=== PATIENT | male | born 1950 | race Caucasian/White ===

== ENCOUNTER 2018-01-25 11:48 | Emergency (ER) | payer MEDICARE, OTHER ==
[2018-01-25] MEDS ORDERED: Sodium Chloride 0.9% 10 ML Syringe FLUSH PRN (12:53)
--- NOTE | 2018-01-25 12:58 | EDM.PDOC ---
ED HPI GENERAL MEDICAL PROBLEM - General Chief Complaint: General Stated Complaint: DR MAURICE FELT HE SHOULD COME TO ER Time Seen by Provider: 01/25/18 12:25 Source of Information: Reports: Patient History Limitations: Reports: No Limitations - History of Present Illness INITIAL COMMENTS - FREE TEXT/NARRATIVE: pt arrived because yestwerday he was not able to use his rt hand. Prior to thAT HE HAD TINGLING IN THE HAND. hE FELT LIKE HIS HAND WAS SHAKING. Onset: Other (PT WAS NOT ABLE TO USE HIS RT HAND. THIS OCCURRED YESTERDAY AND TODAY IT APPEARS TO BE WORKING WELL. ) Duration: Hour(s): Location: Reports: Upper Extremity, Right Associated Symptoms: Reports: No Other Symptoms, Other (PT IS CHRONICLY RUNNING LOW o2 SATS. ) - Related Data Allergies Allergy/AdvReac Type Severity Reaction Status Date / Time No Known Allergies Allergy Verified 09/03/13 13:56 Home Meds: Home Meds Aspirin [[place]ander Chewable Aspirin] 09/03/13 [History] Budesonide/Formoterol [Symbicort 160-4.5 Mcg Inhaler] 09/03/13 [History] Carvedilol 09/03/13 [History] Lisinopril 09/03/13 [History] Simvastatin 09/03/13 [History] Spironolactone 09/03/13 [History] metFORMIN [Glucophage] 09/03/13 [History] Past Medical History Cardiovascular History: Reports: Heart Failure, High Cholesterol Respiratory History: Reports: COPD Endocrine/Metabolic History: Reports: Diabetes, Type II - Past Surgical History Other GI Surgeries/Procedures: lab band surgery Social & Family History - Tobacco Use Smoking Status *Q: Heavy Tobacco Smoker Years of Tobacco use: 46 Packs/Tins Daily: 1 - Caffeine Use Caffeine Use: Reports: Coffee, Soda - Recreational Drug Use Recreational Drug Use: Yes Recreational Drug Type: Reports: Marijuana/Hashish ED ROS GENERAL - Review of Systems Review Of Systems: See Below Constitutional: Reports: No Symptoms HEENT: Reports: No Symptoms Respiratory: Reports: Shortness of Breath Cardiovascular: Reports: No Symptoms ED EXAM, GENERAL - Physical Exam Exam: See Below Free Text/Narrative:: pT ARRIVED WITH AHISTORY OF NOT BEING ABLE TO USE HIS RT HAND YESTERDAY FOR A PERIOD OF TIMME. hE HAS NOT HAD ANY PROBLEMS TODAY. hE STATES HE DOES NOT HAVE A HEADACHE. HE DID NOT HAVE OTHER SYMPTOMS. Exam Limited By: No Limitations General Appearance: Alert, Anxious, Other (PUPILS ARE EQUAL AND REACTIVE. ) Ears: Normal TMs Nose: Normal Inspection Throat/Mouth: Normal Inspection Head: Atraumatic Neck: Normal Inspection Respiratory/Chest: No Respiratory Distress, Other (pT DOES DROP HIS O2 SATS IN THE LOW 80S WHEN HE IS NOT ON O2. tHIS HAS BEEN GOING ON FOR AWHILE. hE DOES HAVE O2 THAT HE USES IN THE NITE . ) Cardiovascular: Regular Rate, Rhythm, Tachycardia GI/Abdominal: Soft, Non-Tender (Male) Exam: Deferred Rectal (Males) Exam: Deferred Back Exam: Normal Inspection Extremities: Normal Inspection Neurological: Alert, Oriented, Normal Cognition, Other (NO NEURO SYMPTOMS. ) Course - Vital Signs Last Recorded V/S: Last Vital Signs Temp 37.2 C 01/25/18 12:25 Pulse 99 01/25/18 12:25 Resp 18 01/25/18 12:25 BP 138/74 01/25/18 12:25 Pulse Ox 86 L 01/25/18 12:25 - Orders/Labs/Meds Orders: Active Orders 24 hr Category Date Time Status Cardiac Monitoring [RC] .As Directed Care 01/25/18 12:52 Active EKG Documentation Completion [RC] ASDIRECTED Care 01/25/18 12:51 Active Chest 1V Frontal [CR] Stat Exams 01/25/18 15:22 Taken CULTURE URINE [RM] Stat Lab 01/25/18 15:04 Received UA W/MICROSCOPIC [URIN] Urgent Lab 01/25/18 14:18 Ordered Sodium Chloride 0.9% [Saline Flush] Med 01/25/18 12:53 Active 10 ml FLUSH ASDIRECTED PRN Saline Lock Insert [OM.PC] Routine Oth 01/25/18 12:53 Ordered EKG 12 Lead [EK] Routine Ther 01/25/18 12:51 Ordered Medication Orders Sodium Chloride (Saline Flush) 10 ml FLUSH ASDIRECTED PRN PRN Reason: Keep Vein Open Last Admin: 01/25/18 13:04 Dose: 10 ml Labs: Laboratory Tests 01/25/18 01/25/18 01/25/18 Range/Units 13:06 13:06 14:18 WBC 8.0 (4.5-11.0) K/uL RBC 5.85 (4.30-5.90) M/uL Hgb 17.0 H D (12.0-15.0) g/dL Hct 55.7 H (40.0-54.0) % MCV 95 (80-98) fL MCH 29 (27-31) pg MCHC 31 L (32-36) % Plt Count 195 (150-400) K/uL Neut % (Auto) 74 H (36-66) % Lymph % (Auto) 19 L (24-44) % [place] % (Auto) 7 H (2-6) % Eos % (Auto) 1 L (2-4) % Baso % (Auto) 0 (0-1) % Sodium 136 L (140-148) mmol/L Potassium 4.2 (3.6-5.2) mmol/L Chloride 96 L (100-108) mmol/L Carbon Dioxide 34 H (21-32) mmol/L Anion Gap 10.2 (5.0-14.0) mmol/L BUN 6 L D (7-18) mg/dL Creatinine 1.0 (0.8-1.3) mg/dL Est Cr Clr Drug Dosing 79.76 mL/min Estimated GFR (MDRD) > 60 (>60) Glucose 131 H (74-106) mg/dL Calcium 8.8 (8.5-10.1) mg/dL Total Bilirubin 1.0 D (0.2-1.0) mg/dL AST 14 L (15-37) U/L ALT 14 (12-78) U/L Alkaline Phosphatase 113 (46-116) U/L Total Protein 8.1 (6.4-8.2) g/dL Albumin 2.9 L (3.4-5.0) g/dL Globulin 5.2 H (2.3-3.5) g/dL Albumin/Globulin Ratio 0.6 L (1.2-2.2) Urine Color Yellow Urine Appearance Turbid Urine pH 7.0 (4.5-8.0) Ur Specific [place] 1.005 L (1.008-1.030) Urine Protein 100 H (NEGATIVE) mg/dL Urine Glucose (UA) Normal (NEGATIVE) mg/dL Urine Ketones Negative (NEGATIVE) mg/dL Urine Occult Blood Negative (NEGATIVE) Urine Nitrite Negative (NEGAITVE) Urine Bilirubin Negative (NEGATIVE) Urine Urobilinogen 1 (NORMAL) mg/dL Ur Leukocyte Esterase Large (NEGATIVE) Urine RBC Not seen (0-5) Urine WBC Packed H (0-5) Ur Epithelial Cells Moderate Amorphous Sediment Moderate Urine Bacteria Many Urine Mucus Moderate Meds: Medications Generic Name Dose Route Start Last Admin Trade Name Amrikq PRN Reason Stop Dose Admin Sodium Chloride 10 ml 01/25/18 12:53 01/25/18 13:04 Saline Flush FLUSH 10 ml ASDIRECTED PRN Administration Keep Vein Open - Re-Assessments/Exams Free Text/Narrative Re-Assessment/Exam: 01/25/18 15:26 PT CONTINUES TO RUN LOW O2 SATS IN THE MID 80S. hE DOES HAVE A PORTABLE UNIT AT HOME BUT DOES HAVE A ROOM CONCENTRATOR. 01/25/18 15:27 HE HAD A CAT SCAN OF THE HEAD, AND A mri OF THE HEAD WHICH WERE NEG. hIS LAB WORK LOOKS GOOD EXCEPT HIS O2 SAts. Departure - Departure Time of Disposition: 15:29 Disposition: Home, Self-Care 01 Condition: Fair Clinical Impression: TIA (transient ischemic attack), Low O2 saturation, UTI (urinary tract infection) - Discharge Information Instructions: Hypoxia, Transient Ischemic Attack, [id number] Referrals: Isak Maurice MD [Primary Care Provider] - Forms: ED Department Discharge Care Plan Goals: appt with Dr Maurice to set up home o2 equipment that is portable, follow up on the stroke workup because he was not able to use his rt hand on Wednesday am. Schedule carotid US, schedule Echo, rtc if further symptoms , be sure to use the baby asa 81 mg daily When pt sees Dr Maurice have a Pa and left lateral chest to compare with his old films. cipro 500mg bid for UTI - My Orders Last 24 Hours: My Active Orders 01/25/18 12:51 EKG Documentation Completion [RC] ASDIRECTED EKG 12 Lead [EK] Routine 01/25/18 12:52 Cardiac Monitoring [RC] .As Directed 01/25/18 12:53 Sodium Chloride 0.9% [Saline Flush] 10 ml FLUSH ASDIRECTED PRN Saline Lock Insert [OM.PC] Routine 01/25/18 14:18 UA W/MICROSCOPIC [URIN] Urgent 01/25/18 15:04 CULTURE URINE [RM] Stat 01/25/18 15:22 Chest 1V Frontal [CR] Stat - Assessment/Plan Last 24 Hours: My Active Orders 01/25/18 12:51 EKG Documentation Completion [RC] ASDIRECTED EKG 12 Lead [EK] Routine 01/25/18 12:52 Cardiac Monitoring [RC] .As Directed 01/25/18 12:53 Sodium Chloride 0.9% [Saline Flush] 10 ml FLUSH ASDIRECTED PRN Saline Lock Insert [OM.PC] Routine 01/25/18 14:18 UA W/MICROSCOPIC [URIN] Urgent 01/25/18 15:04 CULTURE URINE [RM] Stat 01/25/18 15:22 Chest 1V Frontal [CR] Stat
--- NOTE | 2018-01-25 13:40 | CT ---
CT head without contrast. Indication: Hand weakness. Technique: Auto dosage reduction and iterative reconstruction techniques employed. Findings: Motion artifact. No hemorrhage. No subacute territorial infarct. Mild hypodensity surroundi ng the periventricular white matter which can indicate chronic small vessel ischemic disease. No mass effect or midline shift. There is again fluid within the left mastoid air cells. This is evident pos teriorly and was evident on remote head CT. Additionally fluid within the right posterior mastoid air cells was evident on prior CT as well. No fracture. Prominent parotid lymph nodes more evident on th e right are visualized. Incompletely visualized nodule posterior the could be an additional lymph nod e but is indeterminate. Was evident 06/12/2009 and is mildly enlarged. Impression: 1. No subacute territorial infarct or hemorrhage.
--- NOTE | 2018-01-25 14:58 | MR ---
MR brain without contrast. Indication: Unable to use right hand. Findings: Motion artifact. Sequences were repeated. There remains motion artifact. Mild atrophy. No e vidence for restricted diffusion to indicate acute infarct. No hemosiderin deposition. Remote appeari ng lacunar infarcts in the basal ganglia bilaterally. Mild high T2 signal within the periventricular white matter and a few foci of high T2 signal at the deep white matter which can indicate chronic sma ll vessel ischemic disease in a patient of this age. There is fluid within the mastoid air cells. Tin y right maxillary sinus mucous retention cyst. Mild ethmoidal mucosal thickening. Impression: 1. No acute infarct. 2. Remote basal ganglia infarcts and high T2 signal abnormalities which can be seen in chronic small vessel ischemic disease of the patient of this age.
--- NOTE | 2018-01-26 08:50 | CR ---
Portable chest There is cardiac enlargement. There is vascular engorgement. There are increased interstitial marking s. There is more focal density in the left lung base. The finding is concerning for possible pneumoni a. Impression: 1. CHF. 2. Evidence for left lower lobe infiltrate. Follow-up with a PA and lateral view is recommended.
== END 2018-01-25 16:35 | disposition home or self-care (01) ==
LOC: JP.ED 11:48
DX: G45.9 Transient cerebral ischemic attack, unspecified (principal); N39.0 Urinary tract infection, site not specified; R09.02 Hypoxemia; E11.9 Type 2 diabetes mellitus without complications; I50.9 Heart failure, unspecified; E78.00 Pure hypercholesterolemia, unspecified
CPT/HCPCS: 36415; 70450; 70551; 71045; 80053; 81001; 85025; 87086; 93005; 99284; J7050